=== PATIENT | male | born 1940 | race Caucasian/White ===

== ENCOUNTER 2019-04-13 09:26 | Inpatient (IN) | payer MEDICARE, BC, MEDICAID ==
[~2019-04-13] VITALS: Ht 172.7 cm; Wt 76.7 kg
[2019-04-13] MEDS ORDERED: LIDOCAINE 2% (UROJET) 10 ML JELLY MM ONE ×2 (09:45→09:47)
[2019-04-13] MEDS ORDERED: CARB1DRO21 OP (09:56)
[2019-04-13] MEDS ORDERED: HALO5TAB PO (09:56)
[2019-04-13] MEDS ORDERED: DIVA500T54 PO (09:56)
[2019-04-13] MEDS ORDERED: MEMA10TA PO (09:56)
[2019-04-13] MEDS ORDERED: MELA3TAB PO (09:56)
[2019-04-13] MEDS ORDERED: HALOPERIDOL IM (09:56)
[2019-04-13] MEDS ORDERED: SERT100T PO (09:56)
[2019-04-13] MEDS ORDERED: OLAN5TAB30 PO (09:56)
[2019-04-13] MEDS ORDERED: DONE5TAB34 PO (09:56)
[2019-04-13] MEDS ORDERED: FINA5TAB11 PO (09:56)
[2019-04-13] MEDS ORDERED: TRAZ-182 PO (10:04)
[2019-04-13] MEDS ORDERED: SIME80TA15 PO (10:04)
[2019-04-13] MEDS ORDERED: OMEP40CA37 PO (10:04)
[2019-04-13] MEDS ORDERED: TAMS-3 PO (10:04)
[2019-04-13] MEDS ORDERED: POLY17PO4 PO (10:04)
[2019-04-13] MEDS ORDERED: SULF1TAB47 PO (10:04)
[2019-04-13 10:36] LABS: BASOPHILS # (AUTO) 0.1 K/uL (0.0-8.0); BASOPHILS % (AUTO) 1.3 % (0.0-2.0); EOSINOPHILS # (AUTO) 0.3 K/uL (0.0-0.7); HEMOGLOBIN 9.8 g/dL (12.5-16.3); LYMPHOCYTES # (AUTO) 0.8 K/uL (20.0-40.0); LYMPHOCYTES % (AUTO) 8.5 % (20.5-51.5); MEAN CORPUSCULAR HEMOGLOBIN 28.6 uug (23.8-33.4); MEAN CORPUSCULAR HGB CONC 34 g/dL (32.5-36.3); MEAN CORPUSCULAR VOLUME 84.8 fL (73.0-96.2); MONOCYTES # (AUTO) 0.7 K/uL (2.0-10.0); MONOCYTES % (AUTO) 6.8 % (0.0-11.0); NEUTROPHILS # (AUTO) 7.9 K/uL (1.8-8.9); NEUTROPHILS % (AUTO) 80.4 % (38.5-71.5); PLATELET COUNT (AUTO) 228 K/uL (152-348); RED BLOOD CELL COUNT(AUTO) 3.42 MIL/uL (4.06-5.63); WHITE BLOOD COUNT (AUTO) 9.9 K/uL (3.6-10.2)
[2019-04-13 10:54] LABS: *BILIRUBIN,URIN NEGATIVE (NEGATIVE); *BLOOD, URINE 3+ (NEGATIVE); *CLARITY,URINE SLIGHTLY CLOUDY (CLEAR); *COLOR,URINE YELLOW (YELLOW); *KETONES,URINE NEGATIVE (NEGATIVE); *UROBILINOGEN,URINE 0.2 E.U./dl (NORMAL); LEUKOCYTE ESTERASE ,URINE 2+ (NEGATIVE); NITRITE, URINE POSITIVE (NEGATIVE); UGLUCOSE NEGATIVE (NEGATIVE)
[2019-04-13 10:56] LABS: ALANINE AMINOTRANSFERASE 18 U/L (16-63); ALKALINE PHOSPHATASE 64 U/L (50-136); ASPARTATE AMINOTRANSFERASE 18 U/L (15-37); BILIRUBIN,DIRECT 0.2 mg/dL (0.0-0.2); BILIRUBIN,TOTAL 0.3 mg/dL (0.2-1.0); CARBON DIOXIDE 25 mmol/L (21-32); CHLORIDE 112 mmol/L (98-107); CREATININE 2.1 mg/dL (0.6-1.3); GLUCOSE 100 mg/dL (74-106); LIPASE 282 U/L (73-393); POTASSIUM 3.2 mmol/L (3.5-5.1); TOTAL PROTEIN, SERUM 6.4 g/dL (6.4-8.2); UREA NITROGEN, BLOOD 27 mg/dL (7-18)
[2019-04-13] MEDS ORDERED: CEFTRIAXONE 1 G VIAL ONE (11:12)
[2019-04-13 11:13] LABS: BACTERIA,URINE MANY /HPF (NONE SEEN); RBC,URINE TNTC /HPF (0-3); SQUAMOUS EPITHELIAL CELL,UR FEW /HPF (NONE SEEN); WBC,URINE 80-100 /HPF (0-3)
[2019-04-13] MEDS ORDERED: CEFTRIAXONE 1 G in IV DEXTROSE 5% 50 ML IV ONE (11:15)
[2019-04-13 12:54] VITALS: BP 119/59
[2019-04-13] MEDS ORDERED: Z GUARD REMEDY PASTE 57 GM TUBE TOP PRN (14:45)
[2019-04-13] MEDS ORDERED: MAGNESIUM HYDROXIDE 30 ML LIQUID UDC PO PRN (14:45)
[2019-04-13] MEDS ORDERED: MIRALAX 17 GM POWD.PACK PO PRN (14:45)
[2019-04-13] MEDS ORDERED: SIMETHICONE 80 MG TAB.CHEW PO PRN (14:45)
[2019-04-13] MEDS ORDERED: HYDROCODONE/APAP 5-325MG TABLET PO PRN (14:45)
[2019-04-13] MEDS ORDERED: ZOLPIDEM 5 MG TABLET PO PRN (14:45)
[2019-04-13] MEDS ORDERED: TRAZODONE 50 MG TABLET PO PRN (14:45)
[2019-04-13] MEDS ORDERED: ACETAMINOPHEN 325 MG TABLET PO PRN (14:45)
[2019-04-13] MEDS ORDERED: ONDANSETRON 4 MG/2 ML VIAL IV PRN (14:45)
[2019-04-13] MEDS ORDERED: OLANZAPINE 5 MG TABLET PO PRN (14:45)
[2019-04-13 15:13] VITALS: BP 156/82
[2019-04-13 15:15] VITALS: BP 119/45
[2019-04-13] MEDS: MEMANTINE HCL 10 MG TABLET PO SCH (16:32)
[2019-04-13] MEDS: HALOPERIDOL 5 MG TABLET PO SCH (16:32)
[2019-04-13] MEDS: MELATONIN 3 MG TABLET PO SCH (18:14)
[2019-04-13 20:06] VITALS: BP 114/60
[2019-04-13] MEDS: DONEPEZIL 5 MG TABLET PO SCH (20:20)
[2019-04-13] MEDS: DIVALPROEX ER 250 MG TAB.SR.24H PO SCH (20:20)
[2019-04-13] MEDS: TAMSULOSIN HCL 0.4 MG CAP.SR.24H PO SCH (20:20)
[2019-04-13] MEDS ORDERED: DIVALPROEX ER 500 MG TAB.SR.24H PO SCH (21:00)
[2019-04-14 00:49] VITALS: BP 113/57
[2019-04-14 04:00] VITALS: BP 122/62
[2019-04-14] MEDS: PANTOPRAZOLE SODIUM 40 MG TABLET.DR PO SCH (06:37)
[2019-04-14 07:27] LABS: BASOPHILS # (AUTO) 0.1 K/uL (0.0-8.0); BASOPHILS % (AUTO) 1.2 % (0.0-2.0); EOSINOPHILS # (AUTO) 0.4 K/uL (0.0-0.7); EOSINOPHILS % (AUTO) 5.7 % (0.0-7.0); HEMATOCRIT 27.9 % (36.7-47.1); HEMOGLOBIN 9.6 g/dL (12.5-16.3); LYMPHOCYTES # (AUTO) 1.2 K/uL (20.0-40.0); LYMPHOCYTES % (AUTO) 15.6 % (20.5-51.5); MEAN CORPUSCULAR HEMOGLOBIN 28.9 uug (23.8-33.4); MEAN CORPUSCULAR HGB CONC 34 g/dL (32.5-36.3); MEAN CORPUSCULAR VOLUME 84.2 fL (73.0-96.2); MONOCYTES # (AUTO) 0.6 K/uL (2.0-10.0); MONOCYTES % (AUTO) 7.4 % (0.0-11.0); NEUTROPHILS # (AUTO) 5.4 K/uL (1.8-8.9); NEUTROPHILS % (AUTO) 70.1 % (38.5-71.5); PLATELET COUNT (AUTO) 207 K/uL (152-348); RED BLOOD CELL COUNT(AUTO) 3.31 MIL/uL (4.06-5.63); WHITE BLOOD COUNT (AUTO) 7.7 K/uL (3.6-10.2)
[2019-04-14 07:33] LABS: CARBON DIOXIDE 24 mmol/L (21-32); CHLORIDE 111 mmol/L (98-107); CHOLESTEROL 201 mg/dL (<200); CREATININE 1.7 mg/dL (0.6-1.3); GLUCOSE 83 mg/dL (74-106); HDL CHOLESTEROL 34 mg/dL (40-60); MAGNESIUM 1.9 mg/dL (1.8-2.4); PHOSPHOROUS 3.1 mg/dL (2.5-4.9); TRIGLYCERIDES 108 MG/DL (30-150); UREA NITROGEN, BLOOD 22 mg/dL (7-18)
[2019-04-14 07:53] LABS: POTASSIUM 2.9 mmol/L (3.5-5.1)
[2019-04-14] MEDS: FINASTERIDE 5 MG TABLET PO SCH (08:20)
[2019-04-14] MEDS: SERTRALINE HCL 100 MG TABLET PO SCH (08:20)
[2019-04-14] MEDS: HALOPERIDOL 5 MG TABLET PO SCH ×3 (08:20→16:07)
[2019-04-14] MEDS: Z GUARD REMEDY PASTE 57 GM TUBE TOP SCH ×2 (08:21→21:11)
[2019-04-14] MEDS: MEMANTINE HCL 10 MG TABLET PO SCH ×2 (08:21→16:07)
[2019-04-14] MEDS: CEFTRIAXONE 1 G in IV DEXTROSE 5% 50 ML IV SCH (08:25)
[2019-04-14] MEDS ORDERED: Medication Not On Formulary EA (Omeprazole 1 CAP) PO SCH (09:00)
[2019-04-14] MEDS ORDERED: POTASSIUM CHLORIDE 10 MEQ TAB.PRT.SR PO ONE (11:00)
[2019-04-14 11:42] VITALS: BP 103/52
[2019-04-14] MEDS ORDERED: POTASSIUM CHLORIDE 20 MEQ TAB.PRT.SR PO ONE (15:00)
[2019-04-14 15:50] VITALS: BP 109/50
[2019-04-14] MEDS: MELATONIN 3 MG TABLET PO SCH (17:46)
[2019-04-14 20:22] VITALS: BP 110/50
[2019-04-14] MEDS: TAMSULOSIN HCL 0.4 MG CAP.SR.24H PO SCH (21:10)
[2019-04-14] MEDS: DIVALPROEX ER 250 MG TAB.SR.24H PO SCH (21:10)
[2019-04-14] MEDS: DONEPEZIL 5 MG TABLET PO SCH (21:10)
[2019-04-15 00:11] VITALS: BP 120/72
[2019-04-15 04:00] VITALS: BP 106/46
[2019-04-15] MEDS: PANTOPRAZOLE SODIUM 40 MG TABLET.DR PO SCH (06:20)
[2019-04-15 07:13] LABS: CARBON DIOXIDE 22 mmol/L (21-32); CHLORIDE 112 mmol/L (98-107); CREATININE 1.7 mg/dL (0.6-1.3); GLUCOSE 86 mg/dL (74-106); POTASSIUM 3.2 mmol/L (3.5-5.1); UREA NITROGEN, BLOOD 21 mg/dL (7-18)
[2019-04-15] MEDS: HALOPERIDOL 5 MG TABLET PO SCH ×3 (08:15→16:34)
[2019-04-15] MEDS: SERTRALINE HCL 100 MG TABLET PO SCH (08:15)
[2019-04-15] MEDS: MEMANTINE HCL 10 MG TABLET PO SCH ×2 (08:15→16:34)
[2019-04-15] MEDS: FINASTERIDE 5 MG TABLET PO SCH (08:15)
[2019-04-15] MEDS: Z GUARD REMEDY PASTE 57 GM TUBE TOP SCH ×2 (08:20→20:43)
[2019-04-15] MEDS: CEFTRIAXONE 1 G in IV DEXTROSE 5% 50 ML IV SCH (09:00)
[2019-04-15] MEDS ORDERED: POTASSIUM CHLORIDE 10 MEQ TAB.PRT.SR PO ONE (10:00)
[2019-04-15] MEDS: IV NS 1000 ML 1,000 ML IV PRN (11:24)
[2019-04-15 11:36] VITALS: BP 107/45
[2019-04-15 16:08] VITALS: BP 112/58
[2019-04-15] MEDS: NITROFURANTOIN/NITROFURAN MAC 100 MG CAPSULE PO SCH ×2 (16:34→20:42)
[2019-04-15] MEDS: MELATONIN 3 MG TABLET PO SCH (17:16)
[2019-04-15 20:10] VITALS: BP 109/49
[2019-04-15] MEDS: TAMSULOSIN HCL 0.4 MG CAP.SR.24H PO SCH (20:42)
[2019-04-15] MEDS: DONEPEZIL 5 MG TABLET PO SCH (20:42)
[2019-04-15] MEDS: DIVALPROEX ER 250 MG TAB.SR.24H PO SCH (20:42)
[2019-04-16] MEDS: IV NS 1000 ML 1,000 ML IV PRN (00:56)
[2019-04-16] MEDS: PANTOPRAZOLE SODIUM 40 MG TABLET.DR PO SCH (06:07)
[2019-04-16 06:51] LABS: BASOPHILS # (AUTO) 0.1 K/uL (0.0-8.0); BASOPHILS % (AUTO) 1.8 % (0.0-2.0); EOSINOPHILS # (AUTO) 0.5 K/uL (0.0-0.7); EOSINOPHILS % (AUTO) 7.8 % (0.0-7.0); HEMATOCRIT 26.2 % (36.7-47.1); HEMOGLOBIN 9.1 g/dL (12.5-16.3); LYMPHOCYTES % (AUTO) 14.7 % (20.5-51.5); MEAN CORPUSCULAR HEMOGLOBIN 28.7 uug (23.8-33.4); MEAN CORPUSCULAR HGB CONC 35 g/dL (32.5-36.3); MEAN CORPUSCULAR VOLUME 82.2 fL (73.0-96.2); MONOCYTES # (AUTO) 0.5 K/uL (2.0-10.0); MONOCYTES % (AUTO) 7.3 % (0.0-11.0); NEUTROPHILS # (AUTO) 4.5 K/uL (1.8-8.9); NEUTROPHILS % (AUTO) 68.4 % (38.5-71.5); PLATELET COUNT (AUTO) 204 K/uL (152-348); RED BLOOD CELL COUNT(AUTO) 3.18 MIL/uL (4.06-5.63); WHITE BLOOD COUNT (AUTO) 6.6 K/uL (3.6-10.2)
[2019-04-16 06:52] VITALS: BP 115/62
[2019-04-16 07:05] LABS: CARBON DIOXIDE 23 mmol/L (21-32); CHLORIDE 113 mmol/L (98-107); CREATININE 1.7 mg/dL (0.6-1.3); GLUCOSE 85 mg/dL (74-106); MAGNESIUM 1.8 mg/dL (1.8-2.4); PHOSPHOROUS 3.3 mg/dL (2.5-4.9); POTASSIUM 2.9 mmol/L (3.5-5.1); UREA NITROGEN, BLOOD 19 mg/dL (7-18)
[2019-04-16] MEDS: NITROFURANTOIN/NITROFURAN MAC 100 MG CAPSULE PO SCH (08:08)
[2019-04-16] MEDS: MEMANTINE HCL 10 MG TABLET PO SCH ×2 (08:08→16:08)
[2019-04-16] MEDS: HALOPERIDOL 5 MG TABLET PO SCH ×3 (08:08→16:08)
[2019-04-16] MEDS: Z GUARD REMEDY PASTE 57 GM TUBE TOP SCH (08:08)
[2019-04-16] MEDS: SERTRALINE HCL 100 MG TABLET PO SCH (08:08)
[2019-04-16] MEDS: FINASTERIDE 5 MG TABLET PO SCH (08:08)
[2019-04-16] MEDS: POTASSIUM CHLORIDE 50 ML IV SCH ×5 (10:12→13:48)
[2019-04-16 11:17] VITALS: BP 116/61
[2019-04-16 15:33] VITALS: BP 118/64
[2019-04-16] MEDS: MELATONIN 3 MG TABLET PO SCH (17:01)
[2019-04-16 20:00] VITALS: BP 105/52
== END 2019-04-16 21:13 | DRG 689 ==
LOC: ER 09:26 → TELE3 12:13 → MEDSURG3 04-15 15:38
PROVIDERS: ADMIT Internal Medicine; ATTEND Internal Medicine
PROC: 0T9B70Z Drainage of Bladder with Drainage Device, Via Natural or Artificial Opening (ICD-10-PCS; principal; 2019-04-13)
DX: N39.0 Urinary tract infection, site not specified (principal); N17.0 Acute kidney failure with tubular necrosis; E44.0 Moderate protein-calorie malnutrition; E87.0 Hyperosmolality and hypernatremia; R33.8 Other retention of urine; N13.8 Other obstructive and reflux uropathy; N40.1 Benign prostatic hyperplasia with lower urinary tract symptoms; G30.9 Alzheimer's disease, unspecified; D63.1 Anemia in chronic kidney disease; F02.80 Dementia in other diseases classified elsewhere, unspecified severity, without behavioral disturbance, psychotic disturbance, mood disturbance, and anxiety; R31.0 Gross hematuria; Z66 Do not resuscitate; E87.6 Hypokalemia; N18.3 Chronic kidney disease, stage 3 (moderate); Z87.440 Personal history of urinary (tract) infections; Z79.899 Other long term (current) drug therapy; B96.20 Unspecified Escherichia coli [E. coli] as the cause of diseases classified elsewhere; B95.2 Enterococcus as the cause of diseases classified elsewhere; N13.9 Obstructive and reflux uropathy, unspecified; N31.2 Flaccid neuropathic bladder, not elsewhere classified; N28.89 Other specified disorders of kidney and ureter; Z91.81 History of falling; K59.00 Constipation, unspecified; F32.9 Major depressive disorder, single episode, unspecified
CPT/HCPCS: 36415; 70030-TC; 71045; 83690; 83735; 84100; 85025; 85730; 87077; 87086; 93005; A4663; G0378; J0696; J3480; J3490; J7030; J7050; J7060